=== PATIENT | female | born 1970 | race Hispanic/Latino ===

== ENCOUNTER 2022-10-22 06:24 | Day surgery (SDC) | payer MEDICARE ==
[2022-10-21 15:43] LABS: BASOPHILS % (AUTO) 0.2 % (0.0-5.0); HEMATOCRIT 37.6 % (36-48); LYMPHOCYTES % (AUTO) 19.5 % (21.0-51.0); MEAN CORPUSCULAR HEMOGLOBIN 27.8 pg (27.0-33.0); MEAN CORPUSCULAR HGB CONC 32.7 g/dL (32.0-36.0); MEAN CORPUSCULAR VOLUME 85.1 fL (79-99); MONOCYTES % (AUTO) 2.7 % (3.0-13.0); NEUTROPHILS % (AUTO) 77.1 % (40.0-77.0); PLATELET COUNT (AUTO) 298 K/uL (130-400); RED BLOOD CELL COUNT(AUTO) 4.42 MIL/uL (4.00-5.50); RED CELL DISTRIBUTION WIDTH 13.1 % (11.0-15.5); WHITE BLOOD COUNT (AUTO) 6.7 K/uL (4.8-10.8)
[2022-10-21 15:59] LABS: INR 0.93 (0.85-1.15); PROTHROMBIN TIME 9.9 SEC (9.6-11.6)
[2022-10-21 16:01] LABS: ALBUMIN 3.9 g/dL (3.5-5.0); CREATININE 0.9 mg/dL (0.5-1.5); POTASSIUM 4.2 mmol/L (3.5-5.1); TOTAL PROTEIN, SERUM 8.1 g/dL (6.0-8.3)
[2022-10-21 16:05] LABS: APPEARANCE,URINE CLEAR (CLEAR); BILIRUBIN,URINE NEGATIVE (NEGATIVE); COLOR,URINE LIGHT-YELLOW (YELLOW); GLUCOSE, URINE (UA) NEGATIVE (NEGATIVE); KETONES,URINE NEGATIVE (NEGATIVE); LEUKOCYTE ESTERASE ,URINE NEGATIVE Leu/uL (NEGATIVE); NITRATE,URINE NEGATIVE (NEGATIVE); OCCULT BLOOD,URINE NEGATIVE (NEGATIVE); PROTEIN,URINE NEGATIVE (NEGATIVE); UROBILINOGEN,URINE 0.2 mg/dL (0.2-1.0)
[2022-10-21 16:15] VITALS: BP 105/66
[~2022-10-22] VITALS: Ht 152.4 cm; Wt 68.9 kg
[2022-10-22] VITALS (14 sets, daily range): BP systolic 96–145; BP diastolic 70–80
[~2022-10-22 06:24] MED LIST: FIBER PO; IBUP1CAP11 PO; OSTEO BIFLEX PO; PAROXETINE PO; TURMERIC PO; TYLENOL ARTHRITIS PO; VITAMIN C PO; VITAMIN D3 PO; VITAMIN E PO
[2022-10-22] MEDS ORDERED: BUPIVACAINE/PF 0.25% 10ML VIAL IJ ONE (06:26)
[2022-10-22] MEDS ORDERED: LACTATED RINGERS 1000ML 1,000 ML IV ONE (07:00)
[2022-10-22] MEDS ORDERED: PROPOFOL 10 MG/ML 20ML VIAL IV ONE (07:26)
[2022-10-22] MEDS ORDERED: DEXAMETHASONE SOD PHOSPHATE 4 MG/ML 1ML VIAL ONE (07:26)
[2022-10-22] MEDS ORDERED: MIDAZOLAM HCL 1 MG/ML 2ML VIAL ONE (07:26)
[2022-10-22] MEDS ORDERED: KETOROLAC 30MG VIAL (30MG/ML) ONE (07:26)
[2022-10-22] MEDS ORDERED: ONDANSETRON 4MG INJ ONE (07:27)
[2022-10-22] MEDS ORDERED: FENTANYL CITRATE PF 50 MCG/1 ML 2ML VIAL ONE (07:27)
[2022-10-22] MEDS: CEFAZOLIN SODIUM 2 GM VIAL IVPB PRN ×2 (07:28→08:10)
[2022-10-22] MEDS ORDERED: 0.9%NACL 1000ML 1,000 ML IV SCH (08:00)
[2022-10-22] MEDS ORDERED: GLYCOPYRROLATE 1 MG/5 ML SYRINGE ONE (08:23)
[2022-10-22] MEDS ORDERED: MEPERIDINE-PF 25 MG/ML SYG ONE (09:30)
== END 2022-10-22 10:45 | disposition home or self-care (01) ==
LOC: DAH 06:24
PROVIDERS: ATTEND Student in an Organized Health Care Education/Training Program
DX: D17.22 Benign lipomatous neoplasm of skin and subcutaneous tissue of left arm (principal); Z20.822 Contact with and (suspected) exposure to COVID-19; F41.9 Anxiety disorder, unspecified; Z88.2 Allergy status to sulfonamides; Z88.3 Allergy status to other anti-infective agents; Z79.899 Other long term (current) drug therapy; Z79.01 Long term (current) use of anticoagulants
CPT/HCPCS: 80053; 84703; 85025; 85610; 85730; 87426; 81003; 36415; 71045; 21552; J1100; A4663; A4452; J7120; J3010; J3490 ×2; J2250; J2704; J2405; J1885; J2175; J0690; G0168; A4930; A4649; A4215; A4223; A4222; A4221; A4600